=== PATIENT | female | born 1985 | race Hispanic/Latino ===

== ENCOUNTER 2017-05-19 16:18 | Observation (INO) | payer OTHER ==
[~2017-05-19] VITALS: Ht 165.1 cm; Wt 61.3 kg
[2017-05-19 16:52] LABS: MEAN CORPUSCULAR HEMOGLOBIN 28.6 pg (27.0-33.0); MEAN CORPUSCULAR HGB CONC 33.2 g/dl (32.0-36.5); MEAN CORPUSCULAR VOLUME 86.3 fl (80.0-96.0); RED CELL DISTRIBUTION WIDTH 12.8 % (11.5-14.5); WHITE BLOOD COUNT 6.1 10^3/uL (4.0-10.0)
[2017-05-19 17:19] LABS: ANION GAP 8 MEQ/L (8-16); BLOOD UREA NITROGEN 7 MG/DL (7-18); CALCIUM LEVEL 8.3 MG/DL (8.5-10.1); CARBON DIOXIDE LEVEL 25 MEQ/L (21-32); CHLORIDE LEVEL 107 MEQ/L (98-107); CREATININE FOR GFR 0.45 MG/DL (0.55-1.02); GLOMERULAR FILTRATION RATE > 60.0 (>60); GLUCOSE, FASTING 83 MG/DL (70-105); POTASSIUM SERUM 3.6 MEQ/L (3.5-5.1); SODIUM LEVEL 140 MEQ/L (136-145)
[2017-05-19] MEDS ORDERED: NS 1,000 ML IV ONE (17:45)
[2017-05-19 18:00] LABS: CONTROL LINE HCG INT CTR LINE PRESENT
--- NOTE | 2017-05-19 18:20 | REPUSA ---
CT of the head Clinical history: Headache. Technique: Multiple axial CT images were obtained through the head without administration of contrast . Findings: The ventricles and sulci are symmetric bilaterally. There is no evidence of acute hemorrhag e or infarct. There is no midline shift, mass effect, or extra-axial fluid collection. The osseous st ructures are unremarkable. The visualized paranasal sinuses and mastoid air cells are clear. Impression: Negative study.
[2017-05-19] MEDS ORDERED: TOPIRAMATE (TopAMAX) 25 MG TAB PO ONE (18:45)
[2017-05-19] MEDS ORDERED: KETOROLAC 30 MG/ML VIAL (J1885) IV ONE (19:30)
[2017-05-19] MEDS ORDERED: ONDANSETRON 4MG/2ML VIAL (J2405) IV PRN (20:30)
[2017-05-19] MEDS ORDERED: ACETAMINOPHEN TAB 650MG DOSE (2X325MG) PO PRN (20:30)
[2017-05-19 20:50] LABS: ALBUMIN 3.6 GM/DL (3.2-5.2); ALKALINE PHOSPHATASE 55 U/L (45-117); ALT/SGPT 28 U/L (12-78); AST/SGOT 11 U/L (15-37); BILIRUBIN,DIRECT 0.1 MG/DL (0.0-0.2); BILIRUBIN,TOTAL 0.5 MG/DL (0.2-1.0); FREE T4 1.35 NG/DL (0.76-1.46); MAGNESIUM LEVEL 1.8 MG/DL (1.8-2.4); TOTAL PROTEIN 6.6 GM/DL (6.4-8.2)
[2017-05-19] MEDS ORDERED: POTASSIUM CHLORIDE 10 MEQ SR TABLET PO ONE (21:15)
[2017-05-19 21:27] LABS: INR 1.16
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
[2017-05-19 23:25] VITALS: BP 109/70
[2017-05-20 06:00] VITALS: BP 106/59
[2017-05-20 07:13] LABS: MEAN CORPUSCULAR HEMOGLOBIN 28.6 pg (27.0-33.0); MEAN CORPUSCULAR HGB CONC 32.8 g/dl (32.0-36.5); MEAN CORPUSCULAR VOLUME 87.1 fl (80.0-96.0); RED CELL DISTRIBUTION WIDTH 12.6 % (11.5-14.5); WHITE BLOOD COUNT 4.5 10^3/uL (4.0-10.0)
[2017-05-20 07:34] LABS: ANION GAP 6 MEQ/L (8-16); BLOOD UREA NITROGEN 8 MG/DL (7-18); CALCIUM LEVEL 8.2 MG/DL (8.5-10.1); CARBON DIOXIDE LEVEL 27 MEQ/L (21-32); CHLORIDE LEVEL 107 MEQ/L (98-107); CHOLESTEROL LEVEL 140 MG/DL (<200); CREATININE FOR GFR 0.46 MG/DL (0.55-1.02); GLOMERULAR FILTRATION RATE > 60.0 (>60); GLUCOSE, FASTING 83 MG/DL (70-105); POTASSIUM SERUM 3.9 MEQ/L (3.5-5.1); SODIUM LEVEL 140 MEQ/L (136-145); TRIGLYCERIDES LEVEL 80 MG/DL (<150)
--- NOTE | 2017-05-20 08:24 | ECGEPIP ---
Stationary ECG Study [facility] [place] - ED Test Date: 2017-05-19 Pat Name: BREANNA ALONZO Department: Room: - Gender: F Structural Technician: JNolberto : 1985 Requested By: Almita Michel Order Number: [id number] Reading MD: Almita Michel Measurements Intervals [place] Rate: 88 P: 78 OR: 158 QRS: 73 QRSD: 87 T: 51 QT: 348 QTc: 421 Interpretive Statements SINUS RHYTHM POSSIBLE LEFT ATRIAL ENLARGEMENT POSSIBLE RIGHT VENTRICULAR CONDUCTION DELAY NO PRIOR FOR COMPARISON Electronically Signed On 05-20-2017 8:24:45 EDT by Almita Michel
[2017-05-20] MEDS ORDERED: ENOXAPARIN 40 MG/0.4 ML SYRINGE (J1650) SC SCH (09:00)
[2017-05-20] MEDS ORDERED: TOPIRAMATE (TopAMAX) 25 MG TAB PO SCH (09:00)
[2017-05-20 09:55] LABS: VITAMIN B12 LEVEL 531 PG/ML (247-911)
--- NOTE | 2017-05-20 10:31 | REP ---
MRI BRAIN WITHOUT CONTRAST: HISTORY: Syncope. COMPARISON: CT 05/19/2017. There are no areas of abnormal signal intensity in the brain. There is no intraparenchymal hemorrhage, infarct, mass or midline shift. The ventricular system is normal in appearance. There is no extracerebral collection. Mucosal thickening is present in the left maxillary sinus. IMPRESSION: There is no intracranial lesion. Signed by Deon Hartmann MD 05/20/2017 10:32 A
--- NOTE | 2017-05-20 11:01 | REP ---
CHEST PA AND LATERAL: 05/20/2017. Clinical history: Dyspnea. Findings: No prior study. The lung fish are well inflated and they show no focal infiltrate, pleural effusion, atelectasis or mass. The heart, mediastinal and hilar contours are normal. There is some mild dextrorotatory curvature of the mid and lower thoracic spine. No lateral pleural thickening, apical scarring or pneumothorax. The heart is not enlarged. The aorta and airway intact. No mediastinal or hilar abnormalities are noted. Bony thorax without acute compression deformity. No free air. Impression: 1. No acute cardiopulmonary change. Signed by Brannon Sue MD 05/20/2017 05:41 P
[2017-05-20 14:00] VITALS: BP 107/66
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
--- NOTE | 2017-05-20 21:28 | EEG ---
DATE OF PROCEDURE: 05/20/2017 REFERRING PHYSICIAN: Mireya Arambula MD DIAGNOSIS: Syncope, rule out seizure. EE 298 HISTORY: The patient is a 31-year-old woman with history of migraines and passing-out spells. This EEG was done to rule out epileptic potential. She is currently taking Topamax, Lovenox, etc. TECHNICAL DESCRIPTION: This digital EEG was recorded by 21 scalp, ear and two EKG electrodes and was reviewed in bipolar and referential montages following reformatting in 10-20 international electrode placement system. INTERPRETATION: The patient was noted to be in awake and drowsy states during this EEG. Resting awake background rhythm consisted of well-formed posterior dominant rhythm with anterior/posterior gradient comprising of 10 Hz alpha activity measuring 15 - 40 microvolts in amplitude which was symmetric and reactive to eye opening. Attenuation of posterior dominant rhythm was seen during transition into drowsiness. Stage I and II sleep were reviewed and were symmetric bilaterally. Hyperventilation elicited mild theta slowing of background rhythm. Photic stimulation at 3 - 30 Hz elicited symmetric photic driving especially at mid frequencies. EKG revealed normal sinus rhythm. No focal, lateralizing or epileptiform abnormalities were seen. No clinical or electrographic seizures were recorded. CONCLUSION: This EEG in awake, drowsy states, stage I and II sleep is within normal limits.
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
--- NOTE | 2017-05-20 23:01 | ECHO ---
DATE OF PROCEDURE: 05/20/2017 REFERRING PHYSICIAN: Jenniffer Hillman MD INDICATION: Syncope HEIGHT: 165 cm WEIGHT: 61.3 kg 2D MEASUREMENTS: Left atrium: 2.6 cm Ventricular septum: 0.86 cm Posterior wall: 0.86 cm Left ventricle diastole: 3.7 cm Aortic root: 2.7 cm Aortic annulus: 2.1 cm Inferior vena cava: 1.5 cm DOPPLER MEASUREMENTS: Aortic valve velocity: 116 cm/s LVOT velocity: 93.2 cm/s LVOT VTI: 18.0 cm/s Mitral E velocity: 80.5 cm/s Mitral A velocity: 51.3 cm/s Mitral deceleration time: 113 ms Pulmonary artery systolic pressure of 17 mmHg by pulmonary acceleration time method. MITRAL ANNULAR TISSUE DOPPLER: E prime septal: 9.9 cm/s E prime lateral: 14.8 cm/s DESCRIPTION: Rhythm was sinus. Image quality was good. No pericardial effusion. This is a 2D, M-mode, color flow Doppler and pulse wave Doppler examination that included mitral annular tissue Doppler. CONCLUSIONS: 1. Normal echocardiogram Doppler. 2. Normal left ventricle internal dimensions and wall thickness. Normal regional left ventricle (LV) wall motion and wall thickening. Normal LV systolic function. Left ventricular ejection fraction (LVEF) 60% - 65% by visual estimate. Normal LV diastolic function.
== END 2017-05-20 19:45 | disposition home or self-care (01) ==
LOC: M ED 16:18 → M ED INP 19:22 → M MSPAV 23:35
PROVIDERS: ADMIT Internal Medicine; ATTEND Hospitalist
DX: R55 Syncope and collapse (principal); Z91.81 History of falling; G43.909 Migraine, unspecified, not intractable, without status migrainosus; F41.9 Anxiety disorder, unspecified; R06.02 Shortness of breath
CPT/HCPCS: 36415; 70450; 70551; 71020; 80048; 80061; 80076; 82607; 83735; 84439; 84443; 84703; 85027; 85610; 85652; 85730; 86038; 93005; 93306; 96372; 96374; 97165; 99285; J1650; J1885